=== PATIENT | female | born 1960 | race Hispanic/Latino ===

== ENCOUNTER 2020-12-07 12:32 | Emergency (ER) | payer MEDICAID ==
[~2020-12-07] VITALS: Ht 149.9 cm; Wt 35.0 kg
[2020-12-07] MEDS ORDERED: IPRATROPIUM 0.5MG/ALBUTEROL 2.5MG INH SOL UD 3ML (DUONEB) NEB ONE ×2 (13:20→16:15)
[2020-12-07] MEDS ORDERED: methylPREDNISolone 125MG 2ML VIAL IV ONE (13:20)
[2020-12-07 13:45] LABS: BASO % 0.5 % (0.0-1.0); EOS # 0.6 10^3/uL (0.0-0.5); HEMATOCRIT 43.9 % (36.0-47.0); HEMOGLOBIN 14.2 g/dl (12.0-15.5); LYMPH # 2.7 10^3/uL (1.5-5.0); MEAN CORPUSCULAR HEMOGLOBIN 29.8 pg (27.0-33.0); MEAN CORPUSCULAR HGB CONC 32.3 g/dl (32.0-36.5); MEAN CORPUSCULAR VOLUME 92.2 fl (80.0-96.0); MONO # 0.6 10^3/uL (0.0-0.8); MONO % 7.2 % (2.0-8.0); NEUTROPHILS # 4.4 10^3/uL (1.5-8.5); NEUTROPHILS % 53.1 % (36.0-66.0); PLATELET COUNT, AUTOMATED 287 10^3/uL (150-450); RED BLOOD COUNT 4.76 10^6/uL (4.00-5.40); WHITE BLOOD COUNT 8.3 10^3/uL (4.0-10.0)
[2020-12-07 14:14] LABS: ALBUMIN 3.8 GM/DL (3.2-5.2); ALT/SGPT 50 U/L (12-78); BILIRUBIN,DIRECT 0.2 MG/DL (0.0-0.2); BILIRUBIN,TOTAL 0.9 MG/DL (0.2-1.0); BLOOD UREA NITROGEN 19 MG/DL (7-18); CALCIUM LEVEL 9.4 MG/DL (8.8-10.2); CARBON DIOXIDE LEVEL 28 MEQ/L (21-32); CHLORIDE LEVEL 108 MEQ/L (98-107); CK-MB VALUE MASS 1.3 NG/ML (<3.6); CPK CREATINE PHOSPHOKINASE 45 U/L (26-192); CREATININE FOR GFR 0.68 MG/DL (0.55-1.30); GLOMERULAR FILTRATION RATE > 60.0 (>45); GLUCOSE, FASTING 157 MG/DL (70-100); MB/CK RELATIVE INDEX 2.89 (< OR =4); NT-PRO BNP 156 PG/ML (<125); POTASSIUM SERUM 4.3 MEQ/L (3.5-5.1); SODIUM LEVEL 139 MEQ/L (136-145); TOTAL PROTEIN 7.2 GM/DL (6.4-8.2); TROPONIN I 0.02 NG/ML (< 0.10)
--- NOTE | 2020-12-07 14:28 | REP ---
INDICATION: SOB, asthma COMPARISON: None. TECHNIQUE: PA/Lateral FINDINGS: The study is submitted for interpretation 2:19 p.m.. Lungs: There is a possible 2 cm nodule in the right apex. There is mild biapical pleural thickening. Otherwise no infiltrate is seen and there is no pulmonary edema. Heart: Normal in size. Mediastinum: Mediastinal silhouette unremarkable. Pleural angles: Unremarkable.. Bones and soft tissues: Unremarkable. IMPRESSION: Possible 2 cm nodule right apex. Recommend follow-up chest CT. <Electronically signed by Carlos Cain > 12/07/20 [id number]
[2020-12-07] MEDS ORDERED: ISOVUE-370 76% 100ML VIAL As Ordered ONE (14:42)
--- NOTE | 2020-12-07 16:01 | REP ---
INDICATION: SOB eval for lung nodule. COMPARISON: Radiograph today. TECHNIQUE: CT angiogram chest performed following the intravenous administration of 100 cc of Isovue 370. Sagittal and coronal reconstruction images are performed. FINDINGS: Lungs: There are bilateral upper lobe emphysematous and fibrotic changes. No parenchymal mass or infiltrate is seen. There is focal somewhat rounded 1 cm soft tissue density in the right mainstem bronchus. This could represent a polyp or focal mucous. Mediastinum: No adenopathy. Pulmonary arteries: No evidence of pulmonary embolism. Nallely: No adenopathy. Axilla: No adenopathy. Pleura: No effusion. Heart: Not enlarged. Thoracic aorta: No aneurysm or dissection. Upper abdominal structures: There is a small hiatal hernia there are few small hypodensities in the kidneys which are too small to characterize and probably represent small cysts.. Visualized osseous structures: Unremarkable. IMPRESSION: No CT evidence of pulmonary embolism. No infiltrate seen. No parenchymal mass. There is focal somewhat rounded 1 cm soft tissue density in the right mainstem bronchus. This could represent a polyp or focal mucous. Recommend follow-up CT or bronchoscopy. <Electronically signed by Carlos Cain > 12/07/20 [id number]
[2020-12-07] MEDS ORDERED: MULT1CAP3 PO (16:40)
[2020-12-07] MEDS ORDERED: MIRA1POW3 PO (16:40)
[2020-12-07] MEDS ORDERED: CARV12.5 PO (16:40)
[2020-12-07] MEDS ORDERED: ATOR40TA75 PO (16:40)
[2020-12-07] MEDS ORDERED: SING5CHW23 PO (16:40)
[2020-12-07] MEDS ORDERED: ALBU83IN NEB ×2 (16:40→18:07)
[2020-12-07] MEDS ORDERED: ESCI5SOL3 PO (16:40)
[2020-12-07 18:10] VITALS: O2SAT 92
[2020-12-07] MEDS ORDERED: PRED20TA PO (18:10)
[2020-12-07 18:27] VITALS: BP 113/68
--- NOTE | 2020-12-07 19:41 | ECGEPIP ---
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
== END 2020-12-07 18:30 | disposition home or self-care (01) ==
LOC: M ED 12:32
DX: J45.901 Unspecified asthma with (acute) exacerbation (principal); R91.8 Other nonspecific abnormal finding of lung field; I10 Essential (primary) hypertension; J45.909 Unspecified asthma, uncomplicated; F41.9 Anxiety disorder, unspecified
CPT/HCPCS: 71046; 71275; 80048; 80076; 82550; 82553; 83880; 84443; 85025; 93005; 93041; 94640; 94760; 96374; 99285; J2930; Q9967

== ENCOUNTER → 2021-01-03 | Outpatient (REF) | payer OTHER ==
[~2021-01-03] MED LIST: ALBU83IN NEB; ATOR40TA75 PO; CARV12.5 PO; ESCI5SOL3 PO; MIRA1POW3 PO; MULT1CAP3 PO; PRED20TA PO; SING5CHW23 PO
[2021-01-03 19:03] LABS: CHOLESTEROL RISK RATIO 3.737 (<5)
[2021-01-03 19:10] LABS: TOTAL 25(OH) VITAMIN D 28.1 NG/ML (30.0-100.0)
[2021-01-03 19:11] LABS: HEMOGLOBIN A1c 5.5 %
== END ==
LOC: M SFHCADAM 14:59
PROVIDERS: ATTEND Physician Assistant
DX: R05 Cough (principal); Z20.1 Contact with and (suspected) exposure to tuberculosis; F32.1 Major depressive disorder, single episode, moderate; Z13.1 Encounter for screening for diabetes mellitus; Z13.220 Encounter for screening for lipoid disorders; R63.4 Abnormal weight loss

== ENCOUNTER → 2021-02-01 | Outpatient (CLI) | payer OTHER | LOC: M WHC 12:12 | PROVIDERS: ATTEND Physician Assistant | DX: Z13.820 Encounter for screening for osteoporosis (principal); Z53.9 Procedure and treatment not carried out, unspecified reason ==